=== PATIENT | male | born 1960 ===

== ENCOUNTER 2018-07-15 09:27 | Emergency (ER) | payer BC ==
[2018-07-15 09:32] VITALS: BP 118/78; PULSE 99; RESP 16; TEMP 98.4; O2SAT 98
--- NOTE | 2018-07-15 09:52 | ED PDOC ---
HPI: CCC, URI, Sore Throat Time Seen by Provider: 07/15/18 09:46 Chief Complaint (Nursing): Cough, Cold, Congestion Chief Complaint (Provider): Cough, Cold, Congestion History Per: Patient History/Exam Limitations: no limitations Onset/Duration Of Symptoms: Persistent (x2 weeks) Current Symptoms Are (Timing): Still Present Additional Complaint(s): 58 year old male with no significant pmHx, presents to ED with a complaint of nonproductive cough associated with chills and sore throat for 2 weeks. He denies any shortness of breath or further medical complaints. PCP: Dr. Zack Ovalle Past Medical History Reviewed: Historical Data, Nursing Documentation, Vital Signs Vital Signs: Last Vital Signs Temp 98.4 F 07/15/18 09:32 Pulse 99 H 07/15/18 09:32 Resp 16 07/15/18 09:32 BP 118/78 07/15/18 09:32 Pulse Ox 98 07/15/18 09:32 - Medical History PMH: No Chronic Diseases - Surgical History Surgical History: No Surg Hx - Family History Family History: States: Unknown Family Hx - Home Medications Home Medications: Ambulatory Orders Medication Instructions Recorded Acetaminophen [Acetaminophen Extra 2 tab PO Q4 PRN #24 tablet 07/17/16 Strength] Ibuprofen [Motrin] 600 mg PO Q8 PRN #21 tab 07/17/16 Oseltamivir Phosphate [Tamiflu] 75 mg PO BID #9 capsule 07/17/16 Promethazine/Codeine 5 ml PO Q12 PRN #100 ml 07/17/16 [Codeine/Promethazine 10 MG/5 Ml-6.25 MG/5 Ml] Amoxicillin/Potassium Clav 1 tab PO TID #30 tab 07/15/18 [Augmentin 500 mg-125 mg] Benzonatate [Tessalon Perle] 100 mg PO Q8 #12 capsule 07/15/18 - Allergies Allergies/Adverse Reactions: Allergies Allergy/AdvReac Type Severity Reaction Status Date / Time No Known Allergies Allergy Verified 07/17/16 12:26 Review of Systems ROS Statement: Except As Marked, All Systems Reviewed And Found Negative Constitutional: Positive for: Chills ENT: Positive for: Throat Pain Respiratory: Positive for: Cough. Negative for: Shortness of Breath, Sputum Physical Exam - Reviewed Nursing Documentation Reviewed: Yes Vital Signs Reviewed: Yes - Physical Exam Appears: Positive for: No Acute Distress Head Exam: Positive for: ATRAUMATIC, NORMAL INSPECTION, NORMOCEPHALIC Skin: Positive for: Normal Color Eye Exam: Positive for: Normal appearance ENT: Positive for: Normal ENT Inspection, TM Is/Are (clear bilaterally. nonerythemous and nonbulging). Negative for: Sinus Pain/Drainage, Nasal Congestion, Pharyngeal Erythema, Tonsillar Swelling Neck: Positive for: Normal, Supple Cardiovascular/Chest: Positive for: Regular Rate, Rhythm Respiratory: Positive for: Normal Breath Sounds. Negative for: Wheezing, Respiratory Distress Neurologic/Psych: Positive for: Alert, Oriented - ECG O2 Sat by Pulse Oximetry: 98 (RA) Pulse Ox Interpretation: Normal Medical Decision Making Medical Decision Making: Initial Impression: Cough Initial Plan: Considering bronchitis. Will obtain CXR to rule out pneumonia. Scribe Attestation: Documented by Sadia Montemayor, acting as a scribe for Divya Roe MD. Provider Scribe Attestation: All medical record entries made by the Scribe were at my direction and personally dictated by me. I have reviewed the chart and agree that the record accurately reflects my personal performance of the history, physical exam, medical decision making, and the department course for this patient. I have also personally directed, reviewed, and agree with the discharge instructions and disposition. Disposition - Clinical Impression Clinical Impression: Bronchitis - Patient ED Disposition Is Patient to be Admitted: No Counseled Patient/Family Regarding: Studies Performed, Diagnosis, Need For Followup, Rx Given - Disposition Referrals: [facility] [Outside] Disposition: Routine/Home Disposition Time: 10:37 Condition: FAIR Prescriptions: Amoxicillin/Potassium Clav [Augmentin 500 mg-125 mg] 1 tab PO TID #30 tab Benzonatate [Tessalon Perle] 100 mg PO Q8 #12 capsule Instructions: Acute Bronchitis Forms: [employer] (Czech) Print Language: BURMESE
--- NOTE | 2018-07-15 10:22 | RAD ---
Date of service: 07/15/2018 HISTORY: cough COMPARISON: No prior. TECHNIQUE: Chest PA and lateral FINDINGS: LUNGS: Reticular markings are increased at the medial bases potentially reflecting early infiltrates of an interstitial nature. Crowding of the bronchovascular markings may be a function of limited history volume instead. Clinically correlate further. PLEURA: No significant pleural effusion identified. No pneumothorax apparent. CARDIOVASCULAR: No aortic atherosclerotic calcification present. Normal cardiac size. No pulmonary vascular congestion. OSSEOUS STRUCTURES: No significant abnormalities. VISUALIZED UPPER ABDOMEN: Normal. OTHER FINDINGS: None. IMPRESSION: Potential medial bibasilar interstitial infiltrates. Poor inspiratory effort limits exam. Follow-up chest radiography with improved history effort is recommended.
== END 2018-07-15 11:14 | disposition home or self-care (01) ==
LOC: H.ER 09:27
DX: J40 Bronchitis, not specified as acute or chronic (principal)